=== PATIENT | female | born 1995 | race Caucasian/White ===

== ENCOUNTER 2017-11-07 01:53 | Emergency (ER) | END 2017-11-07 04:22 | disposition home or self-care (01) ==

== ENCOUNTER 2018-05-29 17:53 | Emergency (ER) | payer SELFPAY ==
[~2018-05-29 17:53] MED LIST: BUSP10TA2 PO; CETI10CA PO; GUAI120S26 PO; IBUP-1542 PO; NAPR-985 PO
== END 2018-05-29 18:42 | disposition left against medical advice (07) ==
LOC: FTE 17:53
DX: Z53.21 Procedure and treatment not carried out due to patient leaving prior to being seen by health care provider (principal)

== ENCOUNTER 2018-11-06 23:06 | Emergency (ER) | payer SELFPAY ==
[~2018-11-06] VITALS: Ht 162.6 cm; Wt 78.0 kg
[~2018-11-06 23:06] MED LIST changes: +GUAI120S25 PO; -GUAI120S26 PO; +IBUP800T48 PO
[2018-11-06 23:11] VITALS: Ht 162.6 cm; Wt 78.0 kg
[2018-11-07] MEDS ORDERED: KETOROLAC 30 MG INJ IM STA (00:40)
[2018-11-07 01:43] VITALS: BP 128/84; PULSE 78; RESP 16
== END 2018-11-07 01:44 | disposition home or self-care (01) ==
LOC: E/R 23:06
DX: G44.209 Tension-type headache, unspecified, not intractable (principal); F17.210 Nicotine dependence, cigarettes, uncomplicated
CPT/HCPCS: 81025; 96372; 99284; J1885